=== PATIENT | male | born 1945 | race Caucasian/White ===

== ENCOUNTER → 2016-05-21 19:05 | Outpatient (CLI) | payer MEDICARE ==
[2014-10-10 09:41] VITALS: BMI 31.4
[~2016-05-21 19:05] MED LIST: BETAPACE 80 MG80 MG PO; COUMADIN7.5 MG PO; QUINIDINE SULF300 M2 PO; SYNTHROID50 MCG PO; ZYLOPRIM300 MG PO
[2016-05-21 20:13] LABS: PROTIME 39.5 SECONDS (11.6-15.0)
== END | disposition home or self-care (01) ==
LOC: D.LABREF 19:05
PROVIDERS: Family Medicine
DX: Z79.01 Long term (current) use of anticoagulants (principal); Z51.81 Encounter for therapeutic drug level monitoring

== ENCOUNTER → 2016-06-11 18:03 | Outpatient (CLI) | payer MEDICARE, OTHER ==
[2014-10-10 09:41] VITALS: BMI 31.4
[2016-06-11 18:51] LABS: INR 1.58 (0.85-1.17); PROTIME 18.8 SECONDS (11.6-15.0)
== END | disposition home or self-care (01) ==
LOC: D.LABREF 18:03
PROVIDERS: Family Medicine
DX: Z79.01 Long term (current) use of anticoagulants (principal); Z51.81 Encounter for therapeutic drug level monitoring

== ENCOUNTER → 2016-06-26 18:49 | Outpatient (CLI) | payer MEDICARE, OTHER ==
[2014-10-10 09:41] VITALS: BMI 31.4
[2016-06-26 20:38] LABS: INR 1.94 (0.85-1.17); PROTIME 22.2 SECONDS (11.6-15.0)
== END | disposition home or self-care (01) ==
LOC: D.LABREF 18:49
PROVIDERS: Family Medicine
DX: I48.91 Unspecified atrial fibrillation (principal)

== ENCOUNTER → 2016-07-23 18:29 | Outpatient (CLI) | payer MEDICARE, OTHER ==
[2014-10-10 09:41] VITALS: BMI 31.4
[2016-07-23 18:51] LABS: INR 2.2 (0.85-1.17); PROTIME 24.5 SECONDS (11.6-15.0)
== END | disposition home or self-care (01) ==
LOC: D.LABREF 18:29
PROVIDERS: Family Medicine
DX: Z79.01 Long term (current) use of anticoagulants (principal)

== ENCOUNTER → 2016-08-23 19:16 | Outpatient (CLI) | payer MEDICARE, OTHER ==
[2014-10-10 09:41] VITALS: BMI 31.4
[2016-08-23 20:43] LABS: INR 2.1 (0.85-1.17); PROTIME 23.6 SECONDS (11.6-15.0)
== END | disposition home or self-care (01) ==
LOC: D.LABREF 19:16
PROVIDERS: Family Medicine
DX: Z51.81 Encounter for therapeutic drug level monitoring (principal); Z79.01 Long term (current) use of anticoagulants

== ENCOUNTER → 2016-09-20 15:12 | Outpatient (CLI) | payer MEDICARE ==
[2014-10-10 09:41] VITALS: BMI 31.4
[2016-09-20 17:52] LABS: INR 2.05 (0.85-1.17); PROTIME 23.1 SECONDS (11.6-15.0)
== END | disposition home or self-care (01) ==
LOC: D.LABREF 15:12
PROVIDERS: Family Medicine
DX: Z51.81 Encounter for therapeutic drug level monitoring (principal); Z79.899 Other long term (current) drug therapy

== ENCOUNTER → 2016-10-25 12:47 | Outpatient (CLI) | payer MEDICARE ==
[2014-10-10 09:41] VITALS: BMI 31.4
[2016-10-25 15:13] LABS: INR 2.13 (0.85-1.17); PROTIME 23.9 SECONDS (11.6-15.0)
== END | disposition home or self-care (01) ==
LOC: D.LABREF 12:47
PROVIDERS: Family Medicine
DX: Z79.01 Long term (current) use of anticoagulants (principal)

== ENCOUNTER → 2016-11-27 19:54 | Outpatient (CLI) | payer MEDICARE ==
[2014-10-10 09:41] VITALS: BMI 31.4
[2016-11-27 20:27] LABS: INR 2.05 (0.85-1.17); PROTIME 23.1 SECONDS (11.6-15.0)
== END | disposition home or self-care (01) ==
LOC: D.LABREF 19:54
PROVIDERS: Family Medicine
DX: Z79.01 Long term (current) use of anticoagulants (principal); Z51.81 Encounter for therapeutic drug level monitoring

== ENCOUNTER → 2016-12-30 15:40 | Outpatient (CLI) | payer MEDICARE ==
[2014-10-10 09:41] VITALS: BMI 31.4
[2016-12-30 19:06] LABS: INR 1.84 (0.85-1.17); PROTIME 21.2 SECONDS (11.6-15.0)
== END | disposition home or self-care (01) ==
LOC: D.LABREF 15:40
PROVIDERS: Family Medicine
DX: Z79.01 Long term (current) use of anticoagulants (principal)

== ENCOUNTER → 2017-01-22 19:23 | Outpatient (CLI) | payer MEDICARE ==
[2014-10-10 09:41] VITALS: BMI 31.4
[2017-01-22 20:14] LABS: INR 1.24 (0.85-1.17); PROTIME 15.5 SECONDS (11.6-15.0)
== END | disposition home or self-care (01) ==
LOC: D.LABREF 19:23
PROVIDERS: Family Medicine
DX: Z51.81 Encounter for therapeutic drug level monitoring (principal); Z79.01 Long term (current) use of anticoagulants

== ENCOUNTER → 2017-06-23 12:36 | Outpatient (CLI) | payer MEDICARE ==
[2014-10-10 09:41] VITALS: BMI 31.4
== END | disposition home or self-care (01) ==
LOC: D.US 12:36
DX: I65.23 Occlusion and stenosis of bilateral carotid arteries (principal)

== ENCOUNTER → 2019-12-20 10:32 | Outpatient (CLI) | payer MEDICARE ==
[2014-10-10 09:41] VITALS: BMI 31.4
== END | disposition home or self-care (01) ==
LOC: D.US 10:30
PROVIDERS: ATTEND Internal Medicine Cardiovascular Disease
DX: I65.23 Occlusion and stenosis of bilateral carotid arteries (principal)